=== PATIENT | male | born 1970 | race Hispanic/Latino ===

== ENCOUNTER 2021-06-14 14:52 | Outpatient (CLI) | payer BC | END 2021-06-14 14:53 | disposition home or self-care (01) | LOC: BURRAD 14:52 | PROVIDERS: ATTEND Family Medicine | DX: M25.561 Pain in right knee (principal) ==

== ENCOUNTER 2025-05-11 12:36 | Emergency (ER) | payer BC | END 2025-05-11 13:21 | disposition home or self-care (01) | LOC: BURERS 12:36 | DX: S01.312A Laceration without foreign body of left ear, initial encounter (principal); E78.5 Hyperlipidemia, unspecified; I10 Essential (primary) hypertension; W01.198A Fall on same level from slipping, tripping and stumbling with subsequent striking against other object, initial encounter; Z79.899 Other long term (current) drug therapy | CPT/HCPCS: 12011; 99283 ==